=== PATIENT | male | born 1945 | race Caucasian/White ===

== ENCOUNTER 2019-04-03 10:55 | Outpatient (RCR) | payer MEDICARE, MEDICAID, SELFPAY | END 2019-04-22 00:01 | LOC: LAB 10:55 | PROVIDERS: Family Provider Family Medicine; Visit Provider Nurse Practitioner Family | DX: I50.9 Heart failure, unspecified (principal) | CPT/HCPCS: 36415; 80048; 85025 ==

== ENCOUNTER 2019-05-12 08:46 | Outpatient (RCR) | payer MEDICARE, MEDICAID, SELFPAY ==
[2019-05-12 09:30] LABS: Anion Gap 13.8 (5-19); Blood Urea Nitrogen 13 mg/dL (8-23); Calcium 9.8 mg/Dl (8.8-10.2); Carbon Dioxide 29 mmol/L (22-29); Chloride 96 mmol/L (98-107); Glucose 81 mg/dL (74-106); Potassium 3.8 mmol/L (3.5-5.1); Sodium 135 mmol/L (136-145)
[2019-05-14 11:12] LABS: Chol HDL Ratio 2.63 mg/dL (1.0-5.00); Cholesterol 129 mg/dL (0-200); HDL Cholesterol 49 mg/dL (60-100); LDL Cholesterol Calculated 60 mg/dL (50-129); LDL HDL Ratio 1.22 RATIO (0.00-3.22); Thyroid Stimulating Hormone 2.85 uIU/mL (0.27-4.20); Triglycerides 102 mg/dL (0-150)
== END 2019-05-23 23:59 | disposition home or self-care (01) ==
LOC: LAB 08:46
PROVIDERS: Family Provider Family Medicine; PCP Family Medicine; Visit Provider Nurse Practitioner Family
DX: E78.5 Hyperlipidemia, unspecified (principal); M62.81 Muscle weakness (generalized); R00.0 Tachycardia, unspecified; J44.1 Chronic obstructive pulmonary disease with (acute) exacerbation; I50.9 Heart failure, unspecified
CPT/HCPCS: 80048; 80061; 84443

== ENCOUNTER 2019-11-28 09:58 | Outpatient (CLI) | payer MEDICARE, MEDICAID, SELFPAY ==
--- NOTE | 2019-11-28 10:03 | FL_ITS ---
WS: [id number] MODIFIED BARIUM SWALLOW HISTORY: Other dysphagia FLUOROSCOPY TIME: 3.8 minutes. Modified barium swallow was performed by the speech pathologist. Fluoroscopy was provided with the pa tient in a lateral projection. Multiple food consistencies were provided. No aspiration or laryngeal penetration. Mild delay in forming a food bolus in swallowing. There is ph aryngeal coating after swallowing. Barium tablet was swallowed without difficulty. FL/FL barium swallow modifd [id number] IMPRESSION: 1. No laryngeal penetration or aspiration. 2. Mild delay in forming the food bolus. Please see speech therapist report also for recommendations.
== END 2019-11-28 09:59 | disposition home or self-care (01) ==
PROVIDERS: PCP Family Medicine; Visit Provider Nurse Practitioner Family
DX: R13.10 Dysphagia, unspecified (principal)
CPT/HCPCS: 74230; 92611